=== PATIENT | female | born 1935 | race Caucasian/White ===

== ENCOUNTER → 2017-05-06 16:39 | Outpatient (CLI) | payer MEDICARE, OTHER ==
[2016-05-23 08:50] VITALS: BMI 22.6
[~2017-05-06 16:39] MED LIST: ATIVAN1 MG PO; BAYER CHEWABLE81 MG PO; CENTRUM COMPLE1 EACH PO; FLUOROPLEX30 GM TP; LEVOTHROID75 MCG PO; LEXAPRO5 MG PO; NORCO 10/325 TA1 TA1 PO; OCUVITE PRESERV1 TAB PO; PEPCID20 MG PO; PLAVIX75 MG PO; PRAVACHOL20 MG PO; RECLAST 55 MG/100 M IV; STOOL SOFTENER250 MG; VITAMIN D3400 UNI1 PO; XARELTO15 MG PO; XARELTO20 MG PO
== END | disposition home or self-care (01) ==
LOC: D.MAMMO 11:00
DX: Z12.31 Encounter for screening mammogram for malignant neoplasm of breast (principal)

== ENCOUNTER → 2017-08-14 13:10 | Outpatient (CLI) | payer MEDICARE, OTHER ==
[2016-05-23 08:50] VITALS: BMI 22.6
== END | disposition home or self-care (01) ==
LOC: D.MRI 13:10
DX: S43.402A Unspecified sprain of left shoulder joint, initial encounter (principal); X58.XXXA Exposure to other specified factors, initial encounter; Y93.89 Activity, other specified; Y92.029 Unspecified place in mobile home as the place of occurrence of the external cause

== ENCOUNTER 2018-02-28 13:19 | Inpatient (IN) | payer MEDICARE, OTHER ==
[~2018-02-28] VITALS: Ht 165.1 cm; Wt 64.0 kg
--- NOTE | ~2018-02-28 | HEMODYNAMI ---
PATIENT:CORNELIA HALL MARCH MEDICAL RECORD: [id number] : 37 LOCATION:[address] ADMISSION DATE: 02/28/18 Generatedon:03/01/201812:11 Patient name: CORNELIA HALL Patient #: [id number] SSN: : 1935 Date of study: 03/01/2018 Page: Of Hemodynamic Procedure Report Patient Data Patient Demographics Procedure consent was obtained First Name: CORNELIA Gender: Female Last Name: ISABEL : 1935 Middle Initial: MARCH Age: 83 year(s) Patient #: [id number] Race: Additional ID: [id number] Contact details Address: [address] [address] State: [place] City: [place] Zip code: [address] Past Medical History History of disease Date Diagnosis Comments CAD Allergies: No known allergies Admission Admission Data Admission Date: 02/28/2018 Admission Time: 16:44 Room #: 2122 Procedure Procedure Types Cath Procedure Diagnostic Procedure LHC LHC w/Coronaries Procedure Description Procedure Date Procedure Date: 03/01/2018 Procedure Start Time: 11:58 Procedure End Time: 12:10 Procedure Staff Name Function Matthew Engel MD Performing Physician Mary Gar RT Monitor Rogerio Painting RN Nurse Jefe Mike RT Scrub Procedure Data Cath Procedure Fluoroscopy Diagnostic fluoroscopy Total fluoroscopy Time: 2.5 time: 2.5 min min Diagnostic fluoroscopy Total fluoroscopy dose: 149 dose: 149 mGy mGy Contrast Material Contrast Material Type Amount (ml) Isovue 370 18 Entry Location Entry Primary Successful Side Size Upsize Upsize Entry Closure Zabala ccessful Closure Location (Fr) 1 (Fr) 2 (Fr) Remarks Device Remarks Radial Right 6 Fr Mechanical artery Short Compression Estimated blood loss: 5 ml Diagnostic catheters Device Type Used For End Catheter Placement DIAGNOSTIC [place] 110cm 5 Left Coronary Fr catheter ([id number]) Angiography DIAGNOSTIC [place] 110cm 5 Right Coronary Fr catheter ([id number]) Angiography Procedure Complications No complications Procedure Medications Medication Administration Route Dosage Oxygen etCO2 Nasal cannula 2 l/min Heparin Flush Bag added to field 2 bags (1000units/500ml NS) 0.9% NaCl I.V. 100 ml/hr Radial Cocktail added to field 1 syringe (Verapomil 2mg/Nitro 400mcg/Heparin 1500units) Fentanyl I.V. 50 mcg Versed I.V. 1 mg Radial Cocktail I.A. 1 syringe (Verapomil 2mg/Nitro 400mcg/Heparin 1500units) Fentanyl I.V. 50 mcg Versed I.V. 1 mg Hemodynamics Rest Heart Rate: 69 (bpm) Snapshots Pre Cath Intra NCS Post Cath Vital Signs Time Heart Resp SPO2 etCO2 NIBP (mmHg) Rhythm Pain Sedation Rate (ipm) (%) (mmHg) Status Level (bpm) 11:50:13 70 17 99 0 135/63(95) NSR 0 (11) 10(A) , No pain 11:54:53 70 18 100 16.4 131/67(106) NSR 0 (11) 10(A) , No pain 11:59:34 69 17 98 34.3 122/62(92) NSR 0 (11) 9(A) , No pain 12:04:12 75 17 95 12.7 107/61(81) NSR 0 (11) 9(A) , No pain 12:08:49 70 17 100 15.6 117/57(90) NSR 0 (11) 9(A) , No pain Medications Time Medication Route Dose Verified Delivered Reason Notes Effectiveness by by 11:56:18 Oxygen etCO2 2 l/min Matthew Beatty Per Nasal Maren Painting RN physician cannula 11:56:26 Heparin Flush added 2 bags Matthew Beatty used for Bag to Maren Painting RN procedure (1000units/500ml field STUART NS) 11:56:35 0.9% NaCl I.V. 100 Matthew Rogerio Per ml/hr Maren Painting RN physician 11:56:42 Radial Cocktail added 1 Matthew Rogerio used for (Verapomil to syringe Maren Painting RN procedure 2mg/Nitro field STUART 400mcg/Heparin 1500units) 11:56:49 Fentanyl I.V. 50 mcg Matthew Beatty for sedation Maren Painting RN, MD 11:56:56 Versed I.V. 1 mg Matthew Beatty for sedation Maren Painting RN, MD 12:03:24 Radial Cocktail I.A. 1 Matthew Matthew for (Verapomil syringe Maren Engel MD vasodilation 2mg/Nitro MD 400mcg/Heparin 1500units) 12:05:53 Fentanyl I.V. 50 mcg Matthew Beatty for sedation Maren Painting RN, MD 12:05:58 Versed I.V. 1 mg Matthew Beatty for sedation Maren Painting RN, MD Procedure Log Time Note 11:30:05 Rogerio Painting RN sent for patient. Start room use. 11:38:06 Time tracking: Regular hours (M-F 7:00 - 5:00) 11:38:10 Plan of Care:Hemodynamics will remain stable., Cardiac rhythm will remain stable., Comfort level will be maintained., Respiratory function will remain adequate., Patient/ family verbilizes understanding of procedure., Procedure tolerated without complication., Recovers from procedure without complications.. 11:44:44 Patient received from PCU to CCL 1 Alert and oriented. Tansferred to table in Supine position. 11:44:45 Warm blankets applied, and madison hugger turned on for patient comfort. 11:44:46 Correct patient and procedure confirmed by team. 11:44:47 Signed procedure consent form obtained from patient. 11:44:48 ECG and BP/O2 sat monitors applied to patient. 11:44:49 Full Disclosure recording started 11:49:20 Vital chart was started 11:53:11 Baseline sample Acquired. 11:53:14 Rhythm: sinus rhythm 11:53:45 H&P Date Dictated: 03/01/2018 Within 30 days and on chart.. 11:53:46 Pre-procedure instructions explained to patient. 11:53:46 Pre-op teaching completed and patient verbalized understanding. 11:53:49 Family in waiting room. 11:53:51 Patient NPO since Midnight. 11:54:00 Patient allergic to No known allergies 11:54:04 Is the patient allergic to Iodine/contrast media? No. 11:54:06 Is patient on blood thinner?Yes 11:54:08 ACC The patient was administered the following blood thiners within the last 24 hours: ACCAspirin, ACCPlavix 11:54:11 Patient diabetic? No. 11:54:14 Previous problem with sedation/anesthesia? No ? 11:54:18 Snore? Yes 11:54:19 Sleep apnea? No 11:54:20 Deviated septum? No 11:54:21 Opens mouth fully? Yes 11:54:24 Sticks out tongue? Yes 11:54:28 Airway obstruction? No ? 11:54:36 Dentures? Yes IN 11:54:40 Pre procedure: right dorsailis pedis pulse 2+ Normal; easily identifiable; not easily obliterated 11:54:42 Modified Enzo's test Ulnar < 7 seconds 11:54:44 Patient pain scale 0/10 ?. 11:54:51 IV patent on arrival in left forearm with 0.9% NaCl at [facility]. 11:54:59 Lab results completed and on chart. 11:55:02 Right Radial & Right Groin area was prepped with chlora-prep and draped in sterile fashion 11:55:04 Alarms reviewed by R. N. 11:55:04 Sharps counted by scrub and verified by R.N. 11:55:10 Use device set Radial Dx or PCI 11:55:11 ACIST Syringe (75873) opened to sterile field. 11:55:11 Medline Cath Pack ([id number]) opened to sterile field. 11:55:12 Bag Decanter (2002) opened to sterile field. 11:55:12 DIAGNOSTIC WIRE .035 260cm J wire (357538) opened to sterile field. 11:55:13 ACIST Hand Control (28014) opened to sterile field. 11:55:13 ACIST Manifold (52979) opened to sterile field. 11:55:14 Tegaderm 4 x 4 (1626W) opened to sterile field. 11:55:15 MBrace Wrist Support ([id number]) opened to sterile field. 11:55:17 SHEATH 6Fr Prelude Radial ([id number]) opened to sterile field. 11:55:29 Final Timeout: patient, procedure, and site verified with staff and physician. All members of the team are in agreement. 11:55:30 Right Radial & Right Groin site verified by team. 11:55:34 Physical assessment completed. ASA score P 2 - A patient with mild systemic disease as per Matthew Engel MD. 11:55:37 Sedation plan: IV Moderate Sedation Medication:Versed, Fentanyl 11:56:18 Oxygen 2 l/min etCO2 Nasal cannula was administered by Rogerio Painting RN; Per physician; 11:56:26 Heparin Flush Bag (1000units/500ml NS) 2 bags added to field was administered by Rogerio Painting RN; used for procedure; 11:56:35 0.9% NaCl 100 ml/hr I.V. was administered by Rogerio Painting RN; Per physician; 11:56:42 Radial Cocktail (Verapomil 2mg/Nitro 400mcg/Heparin 1500units) 1 syringe added to field was administered by Rogerio Painting RN; used for procedure; 11:56:49 Fentanyl 50 mcg I.V. was administered by Rogerio Painting RN; for sedation; 11:56:56 Versed 1 mg I.V. was administered by Rogerio Painting RN; for sedation; 11:58:45 Procedure started. 11:58:49 Local anesthetic to right radial artery with Lidocaine 2% by Matthew Engel MD.INITIAL ACCESS ONLY 11:59:58 A 6 Fr Short sheath was inserted into the Right Radial artery 12:02:17 Zero performed for pressure channel P1 12:02:47 A DIAGNOSTIC [place] 110cm 5 Fr catheter (026320) was advanced over the wire and used for Left Coronary Angiography. 12:03:24 Radial Cocktail (Verapomil 2mg/Nitro 400mcg/Heparin 1500units) 1 syringe I.A. was administered by Matthew Engel MD; for vasodilation; 12:05:53 Fentanyl 50 mcg I.V. was administered by Rogerio Painting RN; for sedation; 12:05:58 Versed 1 mg I.V. was administered by Rogerio Painting RN; for sedation; 12:06:16 A DIAGNOSTIC [place] 110cm 5 Fr catheter (883428) was advanced over the wire and used for Right Coronary Angiography. 12:07:08 Catheter removed. 12:07:27 Sheath removed intact; hemostasis achieved with Mechanical Compression to the Right Radial artery. 12:07:29 Procedure ended.(Physican Out) 12:07:55 Fluoroscopy time 02.50 minutes. 12:07:59 Flurop Dose total: 149 12:07:59 Fluoroscopy dose: 149 mGy 12:08:04 Contrast amount:Isovue 370 18ml. 12:08:06 Sharps counted by scrub and verified by R.N. 12:08:11 TR band inflated with 12cc of air. 12:08:13 Insertion/operative site no bleeding no hematoma. 12:08:19 Post right radial artery:stable, clean and dry 12:08:21 Post Procedure Pulses reassessed and unchanged 12:08:26 Post-procedure physical assessment completed. ASA score P 2 - A patient with mild systemic disease as per Matthew Engel MD. 12:08:30 Post procedure rhythm: unchanged. 12:08:33 Estimated blood loss: 5 ml 12:08:35 Post procedure instruction explained to patient.Patient verbalizes understanding. 12:08:35 Patient needs reinforcement of post procedure teaching. 12:08:38 See physician's report for complete and final results. 12:09:06 TR BAND Standard ([id number]) opened to sterile field. 12:09:25 Procedure and supply charges have been captured, reviewed, submitted and are correct. 12:09:32 Procedure Complication : No complications 12:10:16 Vital chart was stopped 12:10:18 Report given to PCU. 12:10:22 Patient transfered to PCU with Bed. 12:10:43 Procedure ended. 12:10:43 Full Disclosure recording stopped 12:10:46 End room use (Document Last) Device Usage Item Name Manufacture Quantity Catalog Number Hospital Part Current M inimal Lot# / Charge Number Stock Stock Serial# Code ACIST Syringe Acist 1 12212 648111 420204 669858 2 0 (08892) Medical Systems Inc Medline Cath Cardinal 1 [id number] 565229 60943 108075 5 Pack [facility] ([id number]) Bag Decanter Microtek 1 422110 76390 886550 5 () Medical Inc. DIAGNOSTIC WIRE [facility] [place] 1 359199 619624 159114 143577 3 0 .035 260cm J wire (395898) ACIST Hand Acist 1 52243 343370 397857 689778 5 Control (35745) [employer] Systems Inc ACIST Manifold Acist 1 64725 604636 236289 981275 5 (27910) Medical Systems Inc Tegaderm 4 x 4 3M 1 1626W 992099 466160 034860 5 (1626W) MBrace Wrist Advanced 1 140-0250-00 939331 78536 933765 5 Support Vascular (263959656) Dynamics SHEATH 6Fr Merit 1 [id number] 665282 635528 032140 5 Prelude Radial Medical ([id number]) DIAGNOSTIC Terumo 1 40-7427 394558 801899 257661 5 [place] 110cm 5 Fr catheter (660742) TR BAND Terumo 1 [id number] 596162 006923 874219 4 0 Standard ([id number]) Signature Audit [place] Stage Time Signature Unsigned Intra-Procedure 03/01/2018 Mary 12:11:22 PM Counts RT(R) Signatures Monitor : Mary Signature : Counts RT Date : Time : [address] [place] [address]
--- NOTE | ~2018-02-28 | OP ---
PATIENT NAME: CORNELIA HALL ANIBAL MEDICAL RECORD: [id number] :37 LOCATION:D.M2 D.2124 ADMISSION DATE:03/03/18 SURGEON: RADHA HOLGUIN MD DATE OF OPERATION: 03/03/2018 PREOPERATIVE DIAGNOSIS: Symptomatic gallstones. POSTOPERATIVE DIAGNOSES: Symptomatic gallstones with hepatomegaly, also obstructed distal common bile duct, likely due to choledocholithiasis, adhesions to the gallbladder. PROCEDURES: 1. Laparoscopic cholecystectomy. 2. Intraoperative cholangiography without immediate surgeon interpretation. 3. A 14-gauge core needle liver biopsy. SURGEON: Radha Holguin MD MUFFLE WORKER: None. BLOOD LOSS: Minimal. ANESTHESIA: General. DRAINS: x 1 (10-Mongolian fully fluted drain). The indication for the liver biopsy was hepatomegaly. The risks, possible complications and alternatives to procedure were explained to the patient. She elects to proceed. OPERATIVE COURSE: The patient was conveyed to the operating room electively on 03/03/2018. General anesthesia was induced by the anesthesia staff. The abdomen was sterilely prepped and draped. A small skin dk was accomplished in the left upper quadrant. A Veress needle was inserted through the skin dk into the peritoneal cavity. CO2 insufflation was begun. Once a sufficient pneumoperitoneum had been achieved, a 5-mm trocar was inserted through an incision in the right upper quadrant. Under direct internal vision utilizing a television camera, a 5-mm trocar was inserted in the left side of the abdomen. A 5-mm trocar was inserted far laterally in the right upper quadrant. A 12-mm trocar was then inserted through an incision at the umbilicus. During insertion of the Veress needle and all trocars, there appeared to had been no injury to the bowels, any intraperitoneal or retroperitoneal structures. An abdominal survey was undertaken. The indication for liver biopsy was hepatomegaly. A 14-gauge core needle liver biopsy device was advanced under laparoscopic guidance in the right upper quadrant and cores were obtained over the convexity of the liver. The biopsy sites were made hemostatic with electrocautery. I then advanced a cholangiogram trocar. I punctured the fundus of the gallbladder. I aspirated bile. I then injected dye. Under real time fluoroscopy, static fluoroscopic images were obtained. There was no spillage of dye into the duodenum. I even used a good bit of force to try to blow out any obstructing distal common bile duct stone, but this was not successful. OPERATIVE REPORT [id number] CORNELIA HALL ANIBAL I aspirated bile. I removed the cholangiogram trocar. The gallbladder was retracted cephalad. There were adhesions to the gallbladder. The adhesions were taken down bluntly. Blunt dissection was begun in the triangle of Calot. One cystic artery and one cystic duct were identified. These were clipped multiply and divided between clips. The gallbladder was then excised from its bed in the liver. It was placed within an Endobag retrieval device and was withdrawn through the umbilical fascia defect. The 12-mm trocar was placed and the abdomen reinsufflated. I irrigated and aspirated in the right upper quadrant. There was no bleeding even at low pressure of 8. A 10-Mongolian round fully fluted drain was advanced through the lateral most trocar. Utilizing the Kun-Aníbal suture closure device and 0 Vicryl sutures, I closed the fascia at the umbilicus. The skin incision at the umbilicus was closed with 4-0 Vicryl Rapide sutures. The drain was sutured to skin with a 2-0 nylon. The other trocar sites were closed with interrupted intracuticular 3-0 Vicryls. Benzoin and Steri-Strips were applied. The patient was then extubated and conveyed to the post-anesthesia care unit where she was in stable condition. My plan is to consult her primary care physician. Also, consult Dr. Connelly, as I believe that the patient will require an ERCP. TRANSINT:[id number] Voice Confirmation ID: [id number] DOCUMENT ID: [id number] RADHA HOLGUIN MD CC: GREGOR ADLER DO, KIESHA SHEETS MD and JENNIFER CONNELLY DO [id number] DICTATION DATE: 03/03/18 1244 COSMETIC DENTIST: 03/03/18 1732 ADM IN [facility] [address] [place] [address]
--- NOTE | ~2018-02-28 | EC ---
PATIENT:CORNELIA HALL MARCH DATE OF SERVICE: 02/28/18 SEX: F MEDICAL RECORD: [id number] DATE OF : 37 LOCATION:D.M2 D.212 AGE OF PATIENT: 83 ADMISSION DATE: 03/03/18 REFERRING PHYSICIAN: INTERPRETING PHYSICIAN: KIESHA SHEETS MD ECHOCARDIOGRAM REPORT ECHO CHARGES 4 ECHO COMPLETE Date: 03/01 CLINICAL DIAGNOSIS: CHEST PAIN ECHOCARDIOGRAPHIC MEASUREMENTS (adult normal given) AC root (d.<3.7cm) 2.8 cm LV Septum d (<1.2 cm> 1.5 cm Valve Excursion 1.3 cm LV Septum (systole) 1.7 cm Left Atria (s.<4.0cm> 3.3 cm LVPW d(<1.2cm) 1.2 cm RV (d.<2.3cm) 3.0 cm LVPW (sytole) 1.4 cm LV diastole(<5.6CM) 3.6 cm MV E-F(>70mm/sec) cm LV systole 2.5 cm LVOT Diameter 1.7 cm MV exc.(>10mm) 1.5 cm Est.ejection fraction (50-75%) % DOPPLER: LVIT cm/sec A 101 cm/sec E 82.0 cm/sec LA cm/sec RVSP 32 mmHg LVOT 97 cm/sec AOP1/2T m/s Asc. Ao 165 cm/sec RVOT 61 cm/sec RA cm/sec PA 114 cm/sec AV Gradient Peak 10.84mmHg AV Mean 4.91 mmHg AV Area 1.4 cm MV Gradient Peak 5.60 mmHg MV Mean 1.93 mmHg MV Area cm COMMENTS: Project Administrator: 2 TEA [employer] Associate: 4 Dr. Sheets TAPE# PACS Pericardial Effusion N DATE OF SERVICE: PROCEDURE: Transthoracic echocardiogram. FINDINGS: 1. The patient has left ventricular hypertrophy, ejection fraction 65%. No regional wall motion abnormalities. Inflow characteristics are consistent with diastolic dysfunction. 2. The left atrium is normal size, normal function. 3. The aortic valve is normal. ECHOCARDIOGRAM REPORT [id number] CORNELIA HALL MARCH 4. The mitral valve is normal. 5. The tricuspid valve has mild tricuspid regurgitation. RVSP is normal. 6. The right ventricle is normal. 7. The right atrium is normal. 8. The pulmonic valve is normal. This is a normal echocardiogram for the patient's stated age. TRANSINT:[id number] Voice Confirmation ID: [id number] DOCUMENT ID: [id number] KIESHA SHEETS MD at 1131 CC: [id number] DICTATION DATE: 03/02/18809 HIGH SCHOOL ENGLISH TEACHER: 03/02/18 1222 ADM IN [address] [place] [address]
[2018-02-28 13:52] LABS: BASOPHILS 0.6 % (0-2); EOSINOPHILS 3.1 % (0-7); HEMATOCRIT 41.1 % (36.0-48.0); HEMOGLOBIN 13.6 g/dL (12-16); IMMATURE GRANULOCYTES 0.3 % (0-5); LYMPHOCYTES 17.4 % (15-50); MCHC 33.1 g/dL (31.0-37.0); MCV 90.7 fL (80.0-100.0); MEAN PLATELET VOLUME 11.7 fL (7.4-10.4); MONOCYTES 9.3 % (2-11); NEUTROPHILS 69.3 % (40-80); PLATELET COUNT 183 10x3/uL (130-400); RBC 4.53 10x6/uL (4.00-5.40); RDW 14.8 % (11.5-14.5); WBC 7.2 10x3/uL (4.8-10.8)
[2018-02-28 14:46] LABS: CHOL - HDL RATIO 2.8 ratio (2.3-4.1); LDL-HDL RATIO 1.5 ratio (1.5-3.5)
[2018-02-28 14:51] LABS: ALBUMIN 3.6 g/dL (3.4-5.0); ALKALINE PHOSPHATASE 71 U/L (46-116); ALT (SGPT) 38 U/L (10-68); BILIRUBIN - TOTAL 0.34 mg/dL (0.2-1.3); CALC OSMOLALITY 286 mosm/kg (275-300); CALCIUM 9.6 mg/dL (8.5-10.1); CARBON DIOXIDE 32.1 mmol/L (21.0-32.0); CHLORIDE - SERUM 106 mmol/L (98-107); CREATININE - SERUM 1.3 mg/dL (0.6-1.3); GLUCOSE 91 mg/dL (74-106); POTASSIUM - SERUM 4.4 mmol/L (3.5-5.1); SODIUM 142 mmol/L (136-145); UREA NITROGEN 24 mg/dL (7-18); eGFR NON AFRICAN AMERICAN 42 mL/min (90-120)
[2018-02-28 15:03] LABS: CKMB 0.1 U/L (0.0-3.6); CREATINE KINASE 46 UL (21-215)
[2018-02-28 15:08] LABS: TROPONIN-I < 0.017 ng/mL (0.000-0.060)
[2018-02-28 17:20] LABS: CKMB 0.3 U/L (0.0-3.6); CREATINE KINASE 44 UL (21-215)
[2018-02-28 17:27] LABS: TROPONIN-I < 0.017 ng/mL (0.000-0.060)
[2018-02-28] MEDS ORDERED: CELEXA10 MG PO (18:27)
[2018-02-28] MEDS ORDERED: PRESERVISION AR1 CAP PO (18:28)
[2018-02-28] MEDS ORDERED: CENTRUM SILVER1 TA1 PO (18:29)
[2018-02-28 18:49] VITALS: BP 149/78; BMI 20.7
[2018-02-28 20:00] VITALS: BP 118/52
[2018-02-28 23:10] LABS: CKMB 0.4 U/L (0.0-3.6); CREATINE KINASE 42 UL (21-215)
[2018-02-28 23:14] LABS: TROPONIN-I < 0.017 ng/mL (0.000-0.060)
[2018-03-01] VITALS: BP 126/48
[2018-03-01 04:00] VITALS: BP 112/50
[2018-03-01 06:00] LABS: CKMB 0.2 U/L (0.0-3.6); CREATINE KINASE 36 UL (21-215)
[2018-03-01 06:01] LABS: TROPONIN-I < 0.017 ng/mL (0.000-0.060)
[2018-03-01 08:35] VITALS: BP 104/46
[2018-03-01 09:25] VITALS: Ht 165.1 cm; Wt 64.0 kg
[2018-03-01 10:09] LABS: BASOPHILS 0.4 % (0-2); EOSINOPHILS 2.3 % (0-7); HEMATOCRIT 38.2 % (36.0-48.0); HEMOGLOBIN 12.6 g/dL (12-16); IMMATURE GRANULOCYTES 0.2 % (0-5); MCH 29.9 pg (26.0-34.0); MCV 90.5 fL (80.0-100.0); MEAN PLATELET VOLUME 10.9 fL (7.4-10.4); MONOCYTES 8.6 % (2-11); NEUTROPHILS 65.5 % (40-80); PLATELET COUNT 161 10x3/uL (130-400); RBC 4.22 10x6/uL (4.00-5.40); RDW 14.9 % (11.5-14.5)
[2018-03-01 10:11] LABS: WBC 5.2 10x3/uL (4.8-10.8)
[2018-03-01 10:17] LABS: ANION GAP 8.3 mmol/L (8-16); CALCIUM 9.1 mg/dL (8.5-10.1); CARBON DIOXIDE 29.9 mmol/L (21.0-32.0); CREATININE - SERUM 1.3 mg/dL (0.6-1.3); POTASSIUM - SERUM 4.2 mmol/L (3.5-5.1)
[2018-03-01 17:02] VITALS: BP 114/59
[2018-03-01 19:40] VITALS: BP 107/43
[2018-03-02] VITALS: BP 129/62
[2018-03-02 04:00] VITALS: BP 120/48
[2018-03-02 09:09] VITALS: BP 127/62
[2018-03-02 12:00] VITALS: BP 129/62
[2018-03-02 17:23] VITALS: BP 129/58
[2018-03-02 20:00] VITALS: BP 109/53
[2018-03-03 04:00] VITALS: BP 108/54
[2018-03-03 08:00] VITALS: BP 112/60
[2018-03-03 14:33] LABS: BASOPHILS 0.3 % (0-2); EOSINOPHILS 0.8 % (0-7); HEMATOCRIT 40.8 % (36.0-48.0); HEMOGLOBIN 13.3 g/dL (12-16); IMMATURE GRANULOCYTES 0.1 % (0-5); LYMPHOCYTES 10.3 % (15-50); MCH 30.2 pg (26.0-34.0); MCHC 32.6 g/dL (31.0-37.0); MCV 92.5 fL (80.0-100.0); MEAN PLATELET VOLUME 11.1 fL (7.4-10.4); MONOCYTES 3.1 % (2-11); NEUTROPHILS 85.4 % (40-80); PLATELET COUNT 162 10x3/uL (130-400); RBC 4.41 10x6/uL (4.00-5.40); RDW 15.1 % (11.5-14.5); WBC 7.2 10x3/uL (4.8-10.8)
[2018-03-03 15:02] LABS: ALBUMIN 3.2 g/dL (3.4-5.0); ANION GAP 9.5 mmol/L (8-16); BILIRUBIN - TOTAL 0.77 mg/dL (0.2-1.3); CALCIUM 8.7 mg/dL (8.5-10.1); CARBON DIOXIDE 30.5 mmol/L (21.0-32.0); CREATININE - SERUM 1.3 mg/dL (0.6-1.3); PROTEIN - SERUM 6.5 g/dL (6.4-8.2)
[2018-03-03 15:31] VITALS: BP 118/57
[2018-03-03 20:24] VITALS: BP 118/56
[2018-03-04 04:56] LABS: BASOPHILS 0.6 % (0-2); EOSINOPHILS 2.7 % (0-7); HEMOGLOBIN 12.1 g/dL (12-16); IMMATURE GRANULOCYTES 0.2 % (0-5); LYMPHOCYTES 16.8 % (15-50); MCHC 32.7 g/dL (31.0-37.0); MCV 91.8 fL (80.0-100.0); MEAN PLATELET VOLUME 10.9 fL (7.4-10.4); MONOCYTES 9.6 % (2-11); NEUTROPHILS 70.1 % (40-80); PLATELET COUNT 153 10x3/uL (130-400); RBC 4.03 10x6/uL (4.00-5.40); RDW 15.1 % (11.5-14.5); WBC 6.6 10x3/uL (4.8-10.8)
[2018-03-04 05:07] LABS: INR 0.97 (0.85-1.17); PROTIME 12.5 SECONDS (11.6-15.0)
[2018-03-04 05:27] LABS: ALBUMIN 2.9 g/dL (3.4-5.0); ALKALINE PHOSPHATASE 237 U/L (46-116); BILIRUBIN - TOTAL 0.57 mg/dL (0.2-1.3); CALC OSMOLALITY 285 mosm/kg (275-300); CALCIUM 8.4 mg/dL (8.5-10.1); CARBON DIOXIDE 28.3 mmol/L (21.0-32.0); CHLORIDE - SERUM 108 mmol/L (98-107); CREATININE - SERUM 1.1 mg/dL (0.6-1.3); GLUCOSE 107 mg/dL (74-106); MAGNESIUM - SERUM 2.6 mg/dL (1.8-2.4); PHOSPHOROUS 2.5 mg/dL (2.5-4.9); POTASSIUM - SERUM 4.1 mmol/L (3.5-5.1); PROTEIN - SERUM 5.9 g/dL (6.4-8.2); SODIUM 143 mmol/L (136-145); UREA NITROGEN 15 mg/dL (7-18); eGFR NON AFRICAN AMERICAN 50 mL/min (90-120)
[2018-03-04 05:28] LABS: ALT (SGPT) 548 U/L (10-68); TROPONIN-I < 0.017 ng/mL (0.000-0.060)
[2018-03-04 07:51] VITALS: BP 109/53
[2018-03-04 10:25] VITALS: BP 112/55
[2018-03-04 15:31] VITALS: BP 106/59
[2018-03-04] MEDS ORDERED: HYDROCODON-ACE1 EAC7 PO (15:45)
== END 2018-03-04 16:52 | disposition home or self-care (01) | DRG 418 ==
LOC: D.ER 13:19 → D.M2 16:44 → OBSVTIME 03-03 14:05 → D.M2 03-03 14:18
PROVIDERS: Family Medicine; Internal Medicine Cardiovascular Disease; Internal Medicine Gastroenterology; Surgery
PROC: B2151ZZ Fluoroscopy of Left Heart using Low Osmolar Contrast (ICD-10-PCS; 2018-03-01)
PROC: 4A023N7 Measurement of Cardiac Sampling and Pressure, Left Heart, Percutaneous Approach (ICD-10-PCS; 2018-03-01)
PROC: B2111ZZ Fluoroscopy of Multiple Coronary Arteries using Low Osmolar Contrast (ICD-10-PCS; principal; 2018-03-01 12:00)
PROC: 0FB04ZX Excision of Liver, Percutaneous Endoscopic Approach, Diagnostic (ICD-10-PCS; 2018-03-03)
PROC: BF131ZZ Fluoroscopy of Gallbladder and Bile Ducts using Low Osmolar Contrast (ICD-10-PCS; 2018-03-03)
PROC: 0FT44ZZ Resection of Gallbladder, Percutaneous Endoscopic Approach (ICD-10-PCS; 2018-03-03 09:30)
DX: K80.51 Calculus of bile duct without cholangitis or cholecystitis with obstruction (principal); T82.855A Stenosis of coronary artery stent, initial encounter; K82.8 Other specified diseases of gallbladder; Y83.8 Other surgical procedures as the cause of abnormal reaction of the patient, or of later complication, without mention of misadventure at the time of the procedure; I25.10 Atherosclerotic heart disease of native coronary artery without angina pectoris; Z95.5 Presence of coronary angioplasty implant and graft; K21.9 Gastro-esophageal reflux disease without esophagitis

== ENCOUNTER 2018-03-09 07:25 | Inpatient (IN) | payer MEDICARE, OTHER ==
[~2018-03-09] VITALS: Ht 162.6 cm; Wt 64.0 kg
--- NOTE | ~2018-03-09 | CN ---
PATIENT NAME:CORNELIA HALL MEDICAL RECORD: [id number] : 39 LOCATION:D[address] ADMIT DATE: 03/09/18 ACCOUNT: [id number] CONSULTING PHYSICIAN: ANGELA FUNK MD REFERRING PHYSICIAN: RADHA HOLGUIN MD DATE OF CONSULTATION: 03/09/2018 DATE OF ADMISSION: 03/09/2018 CHIEF COMPLAINT: Abdominal pain, nausea, and vomiting. HISTORY: The patient recently had a cholecystectomy by Dr. Holguin. The patient states she went home. Approximately a day afterwards, she developed some nausea and vomiting, began experiencing elevated temperature, presents to the Emergency Room today. She is admitted to Dr. Holguin. We are asked to see her for medical management. Her past history is significant in that she has had cardiac catheterization and 4 stents. She has had history of chronic lymphocytic leukemia, hypothyroidism, hyperlipidemia, depression, history of DVT, pneumonia in the past. She is AB2. She had hysterectomy, tonsillectomy, tubal ligation. FAMILY HISTORY: Mother, brother, sister all had heart disease. Father of tuberculosis. ALLERGIES: BISPHOSPHONATES, NONSTEROIDAL ANTI-INFLAMMATORIES. MEDICATIONS: Included aspirin 81 mg once a day, citalopram 20 mg once a day, famotidine 20 mg p.o. b.i.d., levothyroxine 75 mcg once a day, pravastatin 20 mg once a day, Reclast, vitamin D 1000 international units daily. SOCIAL HISTORY: The patient is a retired law firm receptionist. Educated through the 12th grade. She is . HABITS: She stopped smoking in 1961. Occasional alcoholic beverage. REVIEW OF SYSTEMS: CONSTITUTIONAL: She denies any headache, seizure, or syncope. She denies change in visual or auditory acuity. PULMONARY: She denies any shortness of breath, cough, congestion, history of TB, asthma, bronchitis. CARDIOVASCULAR: She has had no chest pain, palpitation, PND, or orthopnea. GASTROINTESTINAL: The patient has reported chronic nausea and vomiting. She has had fever, chills, and sweats. The patient has had no change in bowel habits. PHYSICAL EXAMINATION: VITAL SIGNS: In the Emergency Room, this patient's temperature was 100.6, pulse 111, respirations 18, blood pressure 112/52. HEENT: Head is normocephalic. No lesions. Ears; TMs clear. Eyes; pupils are equal, round, reactive to light. Extraocular movements are intact. Nasal cavity, oral cavity, and oropharynx clear. NECK: Supple. There is no adenopathy. HEART: Regular rate. LUNGS: Clear. ABDOMEN: The patient does have a J-P drain. Abdomen is somewhat distended. CONSULT REPORT [id number] CORNELIA HALL Tender in the midepigastrium. She has no obvious signs of cellulitis at the present time. EXTREMITIES: Lower extremities have no edema. The patient's urinalysis shows 2+ leukocyte, 0-5 rbc's, but she does have 10-25 wbc's. White count is elevated at 15,000, hemoglobin 13.5, hematocrit is 40.6, her platelets are 178. Chest x-ray showed no cardiomegaly. No active infiltrates present. She had CT scan of abdomen and pelvis. The patient was found to be status post interval cholecystectomy drainage catheter entering into the abdomen at the right lumbar region, coursing superiorly, anteriorly, and medial with the tip terminating anterior to the junction between hepatic segments. The patient has postsurgical edema, fluid, and inflammatory changes in the gallbladder fossa. No large drainable fluid collection is seen. She does have a small- to moderate-size hiatal hernia, otherwise unremarkable. ASSESSMENT: Postop lap kushal fever with history of urinary tract infection. The patient is admitted. Blood cultures and urine cultures will be obtained. The patient was placed on Mefoxin 2 grams IV q. 8 hours. Also, we will check a stool for CDT. She will be given Zofran for any nausea, normal saline at 100 cc an hour. Recheck CBC as well as CMP in a.m. Also, we will ask for GI to consult for possible ERCP. TRANSINT:[id number] Voice Confirmation ID: [id number] DOCUMENT ID: [id number] ANGELA FUNK MD at 0701 CC: [id number] DICTATION DATE: 03/09/18 1145 MEDICAL DIRECTOR: 03/09/18 1610 [place] [address]
--- NOTE | ~2018-03-09 | DS ---
PATIENT:CORNELIA HALL MARCH :39 MEDICAL RECORD: [id number] DISCHARGE SUMMARY ADMISSION DATE: 03/09/18 DISCHARGE DATE: 03/12/18 PRINCIPAL DIAGNOSES: 1. Obstructing common bile duct stone. 2. Recent laparoscopic cholecystectomy and intraoperative cholangiography with liver biopsy. 3. Elevated liver function tests. 4. History of vertigo. 5. History of glaucoma. 6. History of thyroid surgery. 7. History of coronary angioplasty and stents. 8. History of CLL. 9. History of skin cancers. 10. Gastroesophageal reflux. 11. Peptic ulcer disease. 12. Diarrhea. 13. Constipation. 14. History of colostomy and hernia. 15. History of depression and anxiety. 16. Hypothyroidism, on replacement therapy. 17. Leukocytosis. 18. Acute kidney injury. 19. Dehydration. 20. Urinary tract infection. 21. Hiatal hernia by CT scan. PROCEDURE: ERCP with sphincterotomy and stone extraction by Dr. Connelly. HISTORY AND HOSPITAL COURSE: The patient was admitted after laparoscopic cholecystectomy. She was dismissed home. She returned with fever, nausea, and vomiting. She was admitted to the hospital. She underwent a CT of abdomen and pelvis. This revealed interval cholecystectomy with a drainage catheter in place. No drainable fluid collections. The patient underwent ERCP with sphincterotomy. The patient was continued on IV antibiotics. The patient's dehydration improved with IV hydration. There was no bile in the drain. It was removed. Urine cultures grew Escherichia coli as well as Enterococcus faecalis. At the time of ERCP, it was felt there had been possibly retained bile duct stone and biliary obstruction was resolved. The patient was then dismissed home. TRANSINT:[id number] Voice Confirmation ID: [id number] DOCUMENT ID: [id number] RADHA HOLGUIN MD at 1842 CC: GREGOR ADLER DO and ADITI VEGA DO [id number] DICTATION DATE: 04/15/18 170 HOUSEKEEPING/LAUNDRY SUPERVISOR: 04/15/18 185 DIS IN 03/12/18 [id number] [place] [address]
[~2018-03-09 07:25] MED LIST changes: +CELEXA10 MG PO; +CENTRUM SILVER1 TA1 PO; +HYDROCODON-ACE1 EAC7 PO; +PRESERVISION AR1 CAP PO
[2018-03-09 08:25] LABS: APPEARANCE CLOUDY (CLEAR); BILIRUBIN NEGATIVE (NEGATIVE); COLOR YELLOW (YELLOW); GLUCOSE NEGATIVE (NEGATIVE); KETONE NEGATIVE (NEGATIVE); NITRITE NEGATIVE (NEGATIVE); PROTEIN 2+ mg/dL (NEGATIVE); UROBILINOGEN NORMAL (NORMAL)
[2018-03-09 08:26] LABS: BASOPHILS 0.1 % (0-2); EOSINOPHILS 0.9 % (0-7); HEMATOCRIT 40.6 % (36.0-48.0); HEMOGLOBIN 13.5 g/dL (12-16); IMMATURE GRANULOCYTES 0.4 % (0-5); LYMPHOCYTES 1.5 % (15-50); MCH 30.3 pg (26.0-34.0); MCHC 33.3 g/dL (31.0-37.0); MEAN PLATELET VOLUME 11.1 fL (7.4-10.4); MONOCYTES 5.3 % (2-11); NEUTROPHILS 91.8 % (40-80); PLATELET COUNT 178 10x3/uL (130-400); RBC 4.46 10x6/uL (4.00-5.40)
[2018-03-09 08:26] LABS: BACTERIA MANY /hpf (NONE SEEN); EPITHELIAL CELLS 0-5 /hpf (0-5); RED CELLS - URINE 0-5 /hpf (0-5)
[2018-03-09 09:03] LABS: ALBUMIN 2.9 g/dL (3.4-5.0); ANION GAP 15.1 mmol/L (8-16); BILIRUBIN - TOTAL 1.09 mg/dL (0.2-1.3); CALCIUM 9.6 mg/dL (8.5-10.1); CARBON DIOXIDE 26.2 mmol/L (21.0-32.0); CREATININE - SERUM 1.7 mg/dL (0.6-1.3); POTASSIUM - SERUM 4.3 mmol/L (3.5-5.1); PROTEIN - SERUM 7.2 g/dL (6.4-8.2)
[2018-03-09 16:09] VITALS: BP 104/41
[2018-03-09 19:59] VITALS: BP 118/46
[2018-03-10] VITALS (12 sets, daily range): BP systolic 89–130; BP diastolic 39–64; Ht 162.6 cm; Wt 64.0 kg
[2018-03-10 04:59] LABS: BASOPHILS 0.1 % (0-2); EOSINOPHILS 5.9 % (0-7); HEMATOCRIT 38.2 % (36.0-48.0); HEMOGLOBIN 12.5 g/dL (12-16); IMMATURE GRANULOCYTES 0.4 % (0-5); LYMPHOCYTES 4.8 % (15-50); MCHC 32.7 g/dL (31.0-37.0); MCV 91.6 fL (80.0-100.0); MEAN PLATELET VOLUME 11.9 fL (7.4-10.4); MONOCYTES 3.4 % (2-11); NEUTROPHILS 85.4 % (40-80); PLATELET COUNT 205 10x3/uL (130-400); RBC 4.17 10x6/uL (4.00-5.40); RDW 15.5 % (11.5-14.5); WBC 15.3 10x3/uL (4.8-10.8)
[2018-03-10 05:00] LABS: INR 1.08 (0.85-1.17); PROTIME 13.6 SECONDS (11.6-15.0)
[2018-03-10 05:11] LABS: ALBUMIN 2.6 g/dL (3.4-5.0); ANION GAP 15.7 mmol/L (8-16); BILIRUBIN - TOTAL 0.92 mg/dL (0.2-1.3); CARBON DIOXIDE 24.5 mmol/L (21.0-32.0); CREATININE - SERUM 1.9 mg/dL (0.6-1.3); POTASSIUM - SERUM 4.2 mmol/L (3.5-5.1); PROTEIN - SERUM 6.7 g/dL (6.4-8.2)
[2018-03-11 00:32] VITALS: BP 97/48
[2018-03-11 04:06] LABS: BASOPHILS 0.3 % (0-2); EOSINOPHILS 13.1 % (0-7); HEMATOCRIT 31.5 % (36.0-48.0); HEMOGLOBIN 10.3 g/dL (12-16); IMMATURE GRANULOCYTES 0.3 % (0-5); LYMPHOCYTES 7.2 % (15-50); MCH 29.7 pg (26.0-34.0); MCHC 32.7 g/dL (31.0-37.0); MCV 90.8 fL (80.0-100.0); MEAN PLATELET VOLUME 11.3 fL (7.4-10.4); MONOCYTES 4.7 % (2-11); NEUTROPHILS 74.4 % (40-80); RBC 3.47 10x6/uL (4.00-5.40); RDW 15.1 % (11.5-14.5)
[2018-03-11 04:18] LABS: PLATELET COUNT 149 10x3/uL (130-400); WBC 6.6 10x3/uL (4.8-10.8)
[2018-03-11 04:26] LABS: ANION GAP 12.1 mmol/L (8-16); BILIRUBIN - TOTAL 0.48 mg/dL (0.2-1.3); CALCIUM 8.2 mg/dL (8.5-10.1); CARBON DIOXIDE 24.7 mmol/L (21.0-32.0); PHOSPHOROUS 1.6 mg/dL (2.5-4.9); POTASSIUM - SERUM 3.8 mmol/L (3.5-5.1); PROTEIN - SERUM 5.2 g/dL (6.4-8.2)
[2018-03-11 04:28] LABS: ALBUMIN 1.9 g/dL (3.4-5.0); CREATININE - SERUM 1.3 mg/dL (0.6-1.3)
[2018-03-11 04:42] VITALS: BP 103/56
[2018-03-11 08:21] VITALS: BP 105/55
[2018-03-11 13:11] VITALS: BP 133/50
[2018-03-11 16:19] VITALS: BP 117/50
[2018-03-11 21:01] VITALS: BP 117/57
[2018-03-12 04:00] VITALS: BP 124/59
[2018-03-12] MEDS ORDERED: AMPICILLIN TRI500 MG PO (06:47)
[2018-03-12 08:08] VITALS: BP 130/55
[2018-03-12 12:41] VITALS: BP 146/62
== END 2018-03-12 17:35 | disposition home or self-care (01) | DRG 445 ==
LOC: D.ER 07:25 → D.MS 11:05 → D.EDHOLD 11:05 → D.MS 13:24
PROVIDERS: Emergency Medicine; Family Medicine; Internal Medicine Gastroenterology
PROC: 0F7C8ZZ Dilation of Ampulla of Vater, Via Natural or Artificial Opening Endoscopic (ICD-10-PCS; principal; 2018-03-10 13:02)
DX: K83.1 Obstruction of bile duct (principal); N39.0 Urinary tract infection, site not specified; N17.9 Acute kidney failure, unspecified; E86.0 Dehydration; D72.829 Elevated white blood cell count, unspecified; R19.7 Diarrhea, unspecified; B96.20 Unspecified Escherichia coli [E. coli] as the cause of diseases classified elsewhere; B95.2 Enterococcus as the cause of diseases classified elsewhere; E03.9 Hypothyroidism, unspecified; E78.5 Hyperlipidemia, unspecified

== ENCOUNTER → 2019-10-26 09:41 | Outpatient (CLI) | payer MEDICARE, OTHER ==
[2018-03-10 15:23] VITALS: BMI 24.2
--- NOTE | ~2019-10-26 | ST ---
PATIENT:CORNELIA HALL MARCH MEDICAL RECORD: [id number] SEX: F LOCATION:[facility] ORDER #: ADMISSION DATE: 10/26/19 AGE OF PATIENT: 84 REFERRING PHYSICIAN: INTERPRETING PHYSICIAN: LUZ MARIA TUCKER MD DATE OF SERVICE: 10/26/2019 PROCEDURE: Nuclear stress test. INDICATION: Angina and coronary artery disease and hypertension. She was exercised on standard Lexiscan protocol with 33 mCi of sestamibi injected at peak stress, 11 mCi were used previously for rest images. FINDINGS: Gated SPECT reveals preserved ejection fraction at 75% with good wall motion and thickening and brightening throughout all segments. SPECT imaging Cardiolite was used as myocardial fusion agent. There is homogeneous uptake throughout all segments at rest and stress with no evidence of inducible ischemia or previous infarction. OVERALL IMPRESSION: 1. This is a normal nuclear stress test with no evidence of inducible ischemia or previous infarction. 2. Gated SPECT reveals a preserved ejection fraction at 75%. In this patient with ongoing symptomatology, the current scan does not suggest the presence of hemodynamically significant coronary artery disease. Evaluate noncardiac etiology of chest pain. TRANSINT:[id number] Voice Confirmation ID: [id number] DOCUMENT ID: [id number] LUZ MARIA TUCKER MD CC: GREGOR ADLER DO [id number] DICTATION DATE: 10/26/19 [employer] MONITOR: 10/27/19 0125 DEP CLI 10/26/19 [id number] [place] [id number]
[~2019-10-26 09:41] MED LIST changes: +AMPICILLIN TRI500 MG PO
== END | disposition home or self-care (01) ==
LOC: D.HCCARDIO 10-19 10:30
PROVIDERS: ATTEND Internal Medicine Interventional Cardiology
DX: I25.119 Atherosclerotic heart disease of native coronary artery with unspecified angina pectoris (principal)